=== PATIENT | female | born 1980 | race African-American/Black ===

== ENCOUNTER 2021-06-21 04:15 | Inpatient (IN) ==
[2021-06-21] MEDS ORDERED: hydrALAZINE 20 MG/1 ML VIAL IV STA (04:42)
[2021-06-21] MEDS ORDERED: FUROSEMIDE 40 MG/4 ML VIAL IV STA (04:42)
[2021-06-21] MEDS ORDERED: SODIUM CHLORIDE 0.9% 500 ML IV STA (04:42)
[2021-06-21] MEDS ORDERED: PANTOPRAZOLE 40 MG VIAL IV STA (04:42)
[2021-06-21] MEDS ORDERED: HYDROmorphone 1 MG/1 ML SYRINGE IV STA (04:42)
[2021-06-21] MEDS ORDERED: ONDANSETRON 4 MG/2 ML VIAL IV STA (04:42)
[2021-06-21 04:46] LABS: Bacteria,Urine Occasional /HPF (Few); RBC,Urine 2 /HPF (0-4); Squamous Epithelial Cell,Urine Occasional /HPF (0-10)
[2021-06-21 04:47] LABS: Bilirubin,Urine Negative (Negative); Blood, Urine Small mg/dL (Negative); Glucose,Urine (UA) 250 mg/dL (Negative); Ketones,Urine Negative (Negative); Nitrite,Urine Negative (Negative); Protein,Urine 30 mg/dL (Negative); Urine Appearance Clear (Clear); Urine Color Yellow (Yellow); Urine Urobilinogen 0.2 eU/dL (<2.0)
[2021-06-21 05:43] LABS: Barbiturates Screen,Urine Negative (Negative); Benzodiazepines Screen,Urine Negative (Negative); Cannabinoid Screen,Urine Negative (Negative); Opiate Screen,Urine Positive (Negative); Phencyclidine Screen,Urine Negative (Negative)
[2021-06-21 05:44] LABS: Basophils # 0.1 10*3/uL (0.0-0.2); Basophils % 0.4 % (0.0-0.8); Eosinophils # 0.1 10*3/uL (0.0-0.87); Eosinophils % 0.3 % (0.00-10.9); Hematocrit 33.4 VOL% (35.7-47.0); Hemoglobin 10.9 GM/DL (12.0-16.0); Immature Granulocytes % 1.3 %; Immature Granulocytes Absolute 0.22 #; Lymphocytes # 2.4 10*3/uL (1.4-4.0); Lymphocytes % 14.2 % (21.3-54.2); Mean Corpuscular HGB Conc 32.6 GM/DL (32-36); Mean Corpuscular Volume 75.6 FL (87-102); Mean Platelet Volume 10.7 FL (9.6-12.0); Monocytes # 1.5 10*3/uL (0.11-0.8); Monocytes % 8.9 % (1.7-12.7); Neutrophils % 74.9 % (38.7-73.9); Platelet Count 256 T/CUMM (130-400); Red Blood Count 4.42 MC/CUMM (3.8-5.5); Red Cell Distribution Width 15.9 % (9.3-17.3); White Blood Count 16.5 T/CUMM (4-12)
[2021-06-21 06:10] LABS: Albumin 2.1 G/DL (3.4-5.0); Bilirubin,Total 0.5 MG/DL (0.20-1.00); Calcium 8.5 MG/DL (8.5-10.1); Osmolality,Calculated 278.2 MOS/KG (273-304); Potassium 2.8 MMOL/L (3.5-5.1); Total Protein 6.5 G/DL (6.4-8.2)
[2021-06-21 06:17] LABS: Hypochromia 1+
[2021-06-21 06:18] LABS: Microcytosis Slight; Target Cells Slight
[2021-06-21] MEDS ORDERED: POTASSIUM CHLORIDE 20 MEQ TABLET PO STA (06:24)
[2021-06-21] MEDS ORDERED: GLUCAGON 1 MG VIAL IM PRN (08:08)
[2021-06-21] MEDS ORDERED: ACETAMINOPHEN 325 MG TABLET PO PRN (08:08)
[2021-06-21] MEDS ORDERED: DEXTROSE 10% 25 GM/250 ML BAG IV PRN (08:08)
[2021-06-21] MEDS ORDERED: hydrALAZINE 20 MG/1 ML VIAL IV PRN (08:08)
[2021-06-21] MEDS: oxyCODONE/ACETAMINOPHEN 5-325 MG TABLET PO PRN ×3 (10:23→23:21)
[2021-06-21] MEDS: GABAPENTIN 300 MG CAPSULE PO SCH ×3 (10:23→20:28)
[2021-06-21] MEDS: carvediloL 12.5 MG TABLET PO SCH ×2 (10:23→20:28)
[2021-06-21] MEDS: FUROSEMIDE 40 MG TABLET PO SCH (10:23)
[2021-06-21] MEDS: DOCUSATE SODIUM 100 MG CAPSULE PO SCH ×2 (10:23→20:29)
[2021-06-21] MEDS: amLODIPine 10 MG TABLET PO SCH (10:23)
[2021-06-21] MEDS: ONDANSETRON 4 MG/2 ML VIAL IV PRN (13:55)
[2021-06-21] MEDS: INSULIN LISPRO 100 UNIT/ML SUBCUT SCH ×3 (14:13→20:29)
[2021-06-21 14:39] LABS: Calcium 9.1 MG/DL (8.5-10.1); Osmolality,Calculated 272.2 MOS/KG (273-304)
[2021-06-21] MEDS ORDERED: MAGNESIUM SULF RIDER 2 GM/50 ML PREMIX IV ONE (15:41)
[2021-06-21] MEDS ORDERED: SODIUM CHLORIDE 0.9% 500 ML IV ONE (16:00)
[2021-06-21] MEDS: POTASSIUM CHLORIDE 20 MEQ TABLET PO SCH ×2 (19:10→22:29)
[2021-06-22] MEDS ORDERED: PANTOPRAZOLE 40 MG TABLET PO ONE (04:23)
[2021-06-22] MEDS: PANTOPRAZOLE 40 MG TABLET PO SCH ×2 (04:24→05:29)
[2021-06-22] MEDS: POTASSIUM CHLORIDE 20 MEQ TABLET PO SCH (04:24)
[2021-06-22] MEDS: oxyCODONE/ACETAMINOPHEN 5-325 MG TABLET PO PRN ×4 (04:36→23:33)
[2021-06-22 08:26] LABS: Basophils # 0.1 10*3/uL (0.0-0.2); Basophils % 0.3 % (0.0-0.8); Eosinophils # 0.1 10*3/uL (0.0-0.87); Eosinophils % 0.5 % (0.00-10.9); Hemoglobin 10.7 GM/DL (12.0-16.0); Immature Granulocytes % 2.4 %; Immature Granulocytes Absolute 0.39 #; Lymphocytes # 3.7 10*3/uL (1.4-4.0); Lymphocytes % 22.7 % (21.3-54.2); Mean Corpuscular HGB Conc 31.5 GM/DL (32-36); Mean Corpuscular Volume 77.1 FL (87-102); Mean Platelet Volume 10.9 FL (9.6-12.0); Monocytes # 1.5 10*3/uL (0.11-0.8); Monocytes % 9.3 % (1.7-12.7); Neutrophils % 64.8 % (38.7-73.9); Platelet Count 329 T/CUMM (130-400); Red Blood Count 4.41 MC/CUMM (3.8-5.5); Red Cell Distribution Width 16.5 % (9.3-17.3); White Blood Count 16.3 T/CUMM (4-12)
[2021-06-22] MEDS: carvediloL 12.5 MG TABLET PO SCH ×2 (08:33→21:11)
[2021-06-22] MEDS: amLODIPine 10 MG TABLET PO SCH (08:33)
[2021-06-22] MEDS: cefTRIAXone 1,000 MG in SODIUM CHLORIDE 0.9% 100 ML IV SCH (08:55)
[2021-06-22] MEDS: DOCUSATE SODIUM 100 MG CAPSULE PO SCH ×2 (08:56→21:10)
[2021-06-22] MEDS: INSULIN LISPRO 100 UNIT/ML SUBCUT SCH ×4 (08:56→21:11)
[2021-06-22] MEDS: FUROSEMIDE 40 MG TABLET PO SCH (08:56)
[2021-06-22] MEDS: FLUoxetine 20 MG CAPSULE PO SCH (08:56)
[2021-06-22] MEDS: GABAPENTIN 300 MG CAPSULE PO SCH ×3 (08:56→21:10)
[2021-06-22 08:58] LABS: Calcium 9.1 MG/DL (8.5-10.1); Osmolality,Calculated 260.1 MOS/KG (273-304); Potassium 4.2 MMOL/L (3.5-5.1)
[2021-06-22] MEDS: ONDANSETRON 4 MG/2 ML VIAL IV PRN (17:07)
[2021-06-23 05:14] LABS: Basophils # 0.1 10*3/uL (0.0-0.2); Basophils % 0.4 % (0.0-0.8); Eosinophils # 0.1 10*3/uL (0.0-0.87); Eosinophils % 0.7 % (0.00-10.9); Hemoglobin 9.9 GM/DL (12.0-16.0); Immature Granulocytes % 2.4 %; Immature Granulocytes Absolute 0.34 #; Lymphocytes % 20.9 % (21.3-54.2); Mean Corpuscular HGB Conc 31.9 GM/DL (32-36); Mean Corpuscular Volume 77.3 FL (87-102); Mean Platelet Volume 10.2 FL (9.6-12.0); Neutrophils % 68.6 % (38.7-73.9); Platelet Count 321 T/CUMM (130-400); Red Blood Count 4.01 MC/CUMM (3.8-5.5); Red Cell Distribution Width 16.6 % (9.3-17.3); White Blood Count 14.2 T/CUMM (4-12)
[2021-06-23 05:30] LABS: Osmolality,Calculated 273.5 MOS/KG (273-304); Potassium 3.5 MMOL/L (3.5-5.1)
[2021-06-23] MEDS: PANTOPRAZOLE 40 MG TABLET PO SCH (05:31)
[2021-06-23] MEDS: oxyCODONE/ACETAMINOPHEN 5-325 MG TABLET PO PRN ×3 (05:31→18:06)
[2021-06-23] MEDS: INSULIN LISPRO 100 UNIT/ML SUBCUT SCH ×4 (08:13→20:34)
[2021-06-23 08:40] LABS: Folate 16.52 NG/ML (5.38-24.0)
[2021-06-23] MEDS: cefTRIAXone 1,000 MG in SODIUM CHLORIDE 0.9% 100 ML IV SCH (09:15)
[2021-06-23] MEDS: GABAPENTIN 300 MG CAPSULE PO SCH ×3 (09:17→20:34)
[2021-06-23] MEDS: carvediloL 12.5 MG TABLET PO SCH ×2 (09:17→20:34)
[2021-06-23] MEDS: amLODIPine 10 MG TABLET PO SCH (09:17)
[2021-06-23] MEDS: DOCUSATE SODIUM 100 MG CAPSULE PO SCH ×2 (09:17→20:34)
[2021-06-23] MEDS: FLUoxetine 20 MG CAPSULE PO SCH (09:17)
[2021-06-23] MEDS: FUROSEMIDE 40 MG TABLET PO SCH (09:17)
[2021-06-23] MEDS ORDERED: MAGNESIUM SULF RIDER 2 GM/50 ML PREMIX IV ONE (11:00)
[2021-06-24] MEDS: oxyCODONE/ACETAMINOPHEN 5-325 MG TABLET PO PRN ×2 (01:50→09:18)
[2021-06-24 05:42] LABS: Basophils % 0.3 % (0.0-0.8); Eosinophils # 0.1 10*3/uL (0.0-0.87); Eosinophils % 0.9 % (0.00-10.9); Hematocrit 31.8 VOL% (35.7-47.0); Hemoglobin 9.9 GM/DL (12.0-16.0); Immature Granulocytes % 1.6 %; Immature Granulocytes Absolute 0.25 #; Lymphocytes # 2.3 10*3/uL (1.4-4.0); Mean Corpuscular HGB Conc 31.1 GM/DL (32-36); Mean Corpuscular Volume 78.7 FL (87-102); Mean Platelet Volume 10.2 FL (9.6-12.0); Monocytes # 0.7 10*3/uL (0.11-0.8); Monocytes % 4.7 % (1.7-12.7); Neutrophils % 77.5 % (38.7-73.9); Platelet Count 376 T/CUMM (130-400); Red Blood Count 4.04 MC/CUMM (3.8-5.5); Red Cell Distribution Width 16.6 % (9.3-17.3); White Blood Count 15.4 T/CUMM (4-12)
[2021-06-24 05:59] LABS: Calcium 9.2 MG/DL (8.5-10.1); Osmolality,Calculated 270.8 MOS/KG (273-304); Potassium 3.6 MMOL/L (3.5-5.1)
[2021-06-24] MEDS: PANTOPRAZOLE 40 MG TABLET PO SCH (06:33)
[2021-06-24 07:46] VITALS: BP 140/87
[2021-06-24] MEDS: INSULIN LISPRO 100 UNIT/ML SUBCUT SCH ×2 (08:28→19:08)
[2021-06-24] MEDS: carvediloL 12.5 MG TABLET PO SCH (09:16)
[2021-06-24] MEDS: GABAPENTIN 300 MG CAPSULE PO SCH (09:17)
[2021-06-24] MEDS: amLODIPine 10 MG TABLET PO SCH (09:17)
[2021-06-24] MEDS: DOCUSATE SODIUM 100 MG CAPSULE PO SCH (09:17)
[2021-06-24] MEDS: FLUoxetine 20 MG CAPSULE PO SCH (09:17)
[2021-06-24] MEDS: FUROSEMIDE 40 MG TABLET PO SCH (09:18)
[2021-06-24] MEDS: cefTRIAXone 1,000 MG in SODIUM CHLORIDE 0.9% 100 ML IV SCH (09:19)
== END 2021-06-24 11:59 | disposition home or self-care (01) | DRG 251 ==
LOC: EDBD → EDUNIT# → N.ED 04:15 → N.EDINP 04:15 → N.5E 16:21 → SUATTDRO 06-22 08:39
PROVIDERS: ADMIT Internal Medicine; ATTEND Internal Medicine